=== PATIENT | male | born 1960 | race Caucasian/White ===

== ENCOUNTER 2017-06-07 10:50 | Emergency (ER) | payer OTHER ==
[~2017-06-07] VITALS: Ht 182.9 cm; Wt 77.1 kg
[~2017-06-07 10:50] MED LIST: DAY TIME COLD-237 ML PO; NORCO 5-325 TA1 EACH PO; PERCOCET 7.5-31 EACH PO
[2017-06-07] MEDS ORDERED: ALLEGRA-D 12 H1 EACH PO (11:13)
[2017-06-07] MEDS ORDERED: ZITHROMAX250 MG PO (11:13)
[2017-06-07] MEDS ORDERED: METHYLPREDNISOLO4 M1 PO (11:13)
== END 2017-06-07 11:24 | disposition home or self-care (01) ==
LOC: ED 10:50
DX: H81.09 Meniere's disease, unspecified ear (principal); H83.09 Labyrinthitis, unspecified ear; Z87.442 Personal history of urinary calculi; Z91.038 Other insect allergy status
CPT/HCPCS: 99283

== ENCOUNTER 2021-10-21 07:40 | Emergency (ER) | payer OTHER ==
[~2021-10-21] VITALS: Ht 182.9 cm; Wt 75.3 kg
[~2021-10-21 07:40] MED LIST changes: +ALLEGRA-D 12 H1 EACH PO; +CYCLOBENZAPRINE10 MG PO; +METHYLPREDNISOLO4 M1 PO; +ZITHROMAX250 MG PO
== END 2021-10-21 08:26 | disposition home or self-care (01) ==
LOC: ED 07:40
DX: B34.9 Viral infection, unspecified (principal); Z91.030 Bee allergy status; Z79.899 Other long term (current) drug therapy
CPT/HCPCS: 99283; A9270

== ENCOUNTER 2023-05-21 15:37 | Emergency (ER) | payer OTHER ==
[~2023-05-21] VITALS: Ht 182.9 cm; Wt 77.5 kg
[2023-05-21 16:56] LABS: INFLUENZA B NAA NEGATIVE (NEGATIVE); RESPIRATORY SYNCYTIAL VIR NAA NEGATIVE (NEGATIVE)
[2023-05-21] MEDS ORDERED: ATORVASTATIN CA40 MG PO (17:22)
[2023-05-21] MEDS ORDERED: LOSARTAN POTAS100 MG PO (17:23)
[2023-05-21] MEDS ORDERED: ACETAMINOPHEN 500 MG TAB PO ONE (18:30)
[2023-05-21] MEDS ORDERED: IBUPROFEN 600 MG TAB PO ONE (18:30)
[2023-05-21 18:39] VITALS: BP 145/77
== END 2023-05-21 18:41 | disposition home or self-care (01) ==
LOC: ED 15:37
PROVIDERS: Emergency Medicine
DX: J10.1 Influenza due to other identified influenza virus with other respiratory manifestations (principal); I10 Essential (primary) hypertension; Z91.030 Bee allergy status; Z79.899 Other long term (current) drug therapy
CPT/HCPCS: 87502; 99283; U0002

== ENCOUNTER 2024-04-28 12:54 | Emergency (ER) | payer OTHER ==
[~2024-04-28] VITALS: Ht 182.9 cm; Wt 78.0 kg
[~2024-04-28 12:54] MED LIST changes: +ATORVASTATIN CA40 MG PO; +LOSARTAN POTAS100 MG PO
[2024-04-28] MEDS ORDERED: METOPROLOL SUCC50 MG PO (13:09)
[2024-04-28 13:39] LABS: CORONAVIRUS COVID-19 AG NEGATIVE (NEGATIVE); INFLUENZA A AG NEGATIVE (NEGATIVE); INFLUENZA B AG NEGATIVE (NEGATIVE)
[2024-04-28] MEDS ORDERED: AMOXICILLIN500 MG PO (14:04)
[2024-04-28 14:07] VITALS: BP 136/100
== END 2024-04-28 14:11 | disposition home or self-care (01) ==
LOC: ED 12:54
PROVIDERS: Emergency Medicine
DX: J02.0 Streptococcal pharyngitis (principal); I10 Essential (primary) hypertension; Z91.030 Bee allergy status; Z79.899 Other long term (current) drug therapy
CPT/HCPCS: 36415; 87651; 99283